=== PATIENT | male | born 1945 ===

== ENCOUNTER → 2018-04-18 | Outpatient (CLI) | payer MEDICARE | END | disposition home or self-care (01) | LOC: PLD 07:33 → LAB SHORT 07:33 | DX: D04.122 Carcinoma in situ of skin of left lower eyelid, including canthus (principal); D04.39 Carcinoma in situ of skin of other parts of face | CPT/HCPCS: 88305 ==

== ENCOUNTER → 2021-03-23 | Outpatient (CLI) | payer MEDICARE | END | disposition home or self-care (01) | LOC: LAB 07:35 → LAB SHORT 07:35 | DX: C44.320 Squamous cell carcinoma of skin of unspecified parts of face (principal); L57.8 Other skin changes due to chronic exposure to nonionizing radiation | CPT/HCPCS: 88305 ==

== ENCOUNTER → 2021-08-18 | Outpatient (CLI) | payer MEDICARE | END | disposition home or self-care (01) | LOC: PLD 11:17 → LAB SHORT 11:17 | DX: L57.0 Actinic keratosis (principal) | CPT/HCPCS: 88305 ==